=== PATIENT | male | born 1945 | race Caucasian/White ===

== ENCOUNTER 2017-07-02 12:40 | Inpatient (IN) | payer OTHER ==
[~2017-07-02] VITALS: Ht 172.7 cm; Wt 95.3 kg
--- NOTE | ~2017-07-02 | HC ---
[facility] [place] [address] CONSULTATION Name: AMARI LÓPEZ Room #: 204-P ADM IN M.R.#: [id number] Admission: 07/08/17 Attend Phys: Anthony Christianson MD Discharge: Date of : 43 Report #: [id number] THIS REPORT FOR: //name// CC: Raul Christianson DATE OF SERVICE: 07/09/2017 PRIMARY CARE PHYSICIAN: Raul Eller MD MOTION PICTURE EQUIPMENT SUPERVISOR: Rob Arellano MD CHIEF COMPLAINT: Status post CABG. HISTORY OF PRESENT ILLNESS: The patient is a 72-year-old patient, who has a known history of multivessel coronary artery disease as diagnosed by cardiac catheterization performed at [facility] last week. He presented with classical angina type symptoms, had multivessel coronary artery disease and underwent a successful 5-vessel CABG yesterday. This morning, he is hemodynamically stable. He has already been extubated. He is alert, oriented, sitting in a chair. He is in a sinus rhythm and systolic pressures, on Cardene, they are in the 130s range. He is without complaints of orthopnea or PND. He is taking some p.o., but has some limitations and that he has IVs in his right arm and his left arm is wrapped from his radial harvest on his left arm. He has no neurologic deficits of numbness or weakness though. He has no slurred speech or visual changes. PAST MEDICAL HISTORY: 1. Five-vessel CABG yesterday, MCCARTHY and LAD; sequentially to mid and distal LAD, saphenous vein graft to PDA and posterolateral branch and a separate radial artery graft to his obtuse marginal vessel. His LV function is grossly normal. He had very mild inferior hypokinesis. 2. Hypertension. 3. Hyperlipidemia. 4. He has a questionable history of remote TIA. 5. He also has been told he is a borderline diabetic. HOME MEDICATIONS: Include lisinopril 10 mg daily, Plavix 75 mg daily from his TIA, aspirin, metformin 500 mg p.o. b.i.d. and omeprazole. ALLERGIES: He has ALLERGIES TO HYDROCODONE. SOCIAL HISTORY: Nonsmoking. [facility] [address] [place] [address] CONSULTATION Name: AMARI LÓPEZ Room #: 204-P [facility] IN [facility]#: [id number] Admission: 07/08/17 Attend Phys: Anthony Christianson MD Discharge: Date of : 44 Report #: [id number] REVIEW OF SYSTEMS: GASTROINTESTINAL: No abdominal pain, nausea, vomiting. NEUROLOGIC: Denies slurred speech, numbness or weakness, no visual changes. ENDOCRINE: Positive diabetes. CARDIOVASCULAR: No chest pain, no orthopnea, no PND. SKIN: No edema. GENITOURINARY: No dysuria or hematuria. PULMONARY: No history of asthma, emphysema. EYES: Denies any blurred vision or loss of vision. PHYSICAL EXAMINATION: VITAL SIGNS: Blood pressure is 130s/70s in a sinus rhythm and his heart rates are in the 80s, O2 sat on nasal cannula on 2 liters greater than 95%. GENERAL: He is alert, oriented, no apparent distress. NECK: Supple. There is no jugular venous distention. There is a right IJ catheter with a clean and dry dressing. CARDIOVASCULAR: Regular. There is no murmur or S3. CHEST WALL: There is a midline incision with clean dressing with no bleeding. LUNGS: Clear to auscultation bilaterally. He has chest tubes with serosanguineous drainage. ABDOMEN: Nontender. EXTREMITIES: There is no peripheral edema. LABORATORY DATA: His ECG demonstrates a sinus rhythm, normal ST segments. His hemoglobin is 12.2; white blood cell count is 10.6; platelet count is 123,000. Sodium is 144, potassium is 4.5, chloride 111, CO2 is 26, BUN is 15, creatinine is 1.0. Chest x-ray today demonstrates a removal endotracheal tube and gastric tube with increasing atelectasis in the bases. Minimal left-sided pleural effusion. IMPRESSION: 1. Status post 5-vessel coronary artery bypass grafting. He presents with a preserved LV systolic function and severe multivessel coronary artery disease and numerous cardiovascular risk factors, but is hemodynamically stable postoperative day #1. We will continue routine postoperative care. 2. Hypertension. He did require Cardene, but once we restart his home medications, this should be stable. 3. Hyperlipidemia. We will resume therapy. 4. Diabetes mellitus per our hospital colleagues. We will continue with insulin protocol until he can take p.o. 5. History of transient ischemic attack. He presently has no neurologic [address] [address] CONSULTATION Name: AMARI LÓPEZ Room #: 204-P ADM IN [facility].#: [id number] Admission: 07/08/17 Attend Phys: Anthony P. Christianson, MD Discharge: Date of : 44 Report #: [id number] symptoms and his carotid Dopplers were unremarkable for the presence of severe obstructive disease preoperatively. <ELECTRONICALLY SIGNED> By: Rob Arellano MD, FACC 07/10/17 0858 0856 0928 Rob Arellano MD, FACC /nt
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
--- NOTE | ~2017-07-02 | 2DMMODE ---
[facility] [address] [place] [address] 2 D/M-MODE ECHOCARDIOGRAM Name: AMARI LÓPEZ Room #: PRE IN [facility]#: [id number] Admission: Attend Phys: Michael Mason, Discharge: Date of : 43 Date of Service: 07/03/17 1525 Report #: [id number] THIS REPORT FOR: //name// APPROVED REPORT Study performed: 07/03/2017 12:39:45 EXAM: Comprehensive 2D, Doppler, and color-flow Echocardiogram Patient Location: Out-Patient Room #: Echo lab Status: routine BSA: 2.07 HR: 55 bpm BP: 138/86 mmHg Other Information Study Quality: Fair Indications Pre-Op Diabetes CAD Hypertension/HDD Preop CABG 2D Dimensions RVDd: 34.29 mm LVEF(%): 55.64 (>50%) IVSd: 11.20 (7-11mm) LVOT Diam: 24.08 (18-24mm) LVDd: 50.07 mm PWd: 11.29 (7-11mm) Ascending Ao: 29.55 (22-36mm) LVDs: 35.50 (25-40mm) Aortic Root: 33.19 mm IVC: 17.00 mm Rivera's LVEF: 55.64 % Volumes Left Atrial Volume (Systole) Single Plane 4CH: 53.74 mL Single Plane 2CH: 44.79 mL LA ESV Index: 26.00 mL/m2 Aortic Valve AoV Peak Gideon.: 1.67 m/s AO Peak Gr.: 11.22 mmHg LVOT Max P.43 mmHg LVOT Max V: 0.93 m/s MOIRA Vmax: 2.52 cm2 [facility] [address] [place] [address] 2 D/M-MODE ECHOCARDIOGRAM Name: MARIBELAMARI DE LEON BARKER Room #: [facility] IN [facility]#: [id number] Admission: Attend Phys: Michael Mason, Discharge: Date of : 43 Date of Service: 07/03/17 1525 Report #: [id number] Mitral Valve E/A Ratio: 0.8 MV Decel. Time: 266.40 ms MV E Max Gideon.: 0.86 m/s MV A Gideon.: 1.11 m/s MV PHT: 77.26 ms IVRT: 133.79 ms Pulmonary Valve PV Peak Gideon.: 1.10 m/s PV Peak Gr.: 4.84 mmHg Pulmonary Vein P Vein S: 0.58 m/s P Vein A: 0.26 m/s P Vein D: 0.44 m/s P Vein A Dur.: 110.7 msec P Vein S/D Ratio: 1.32 Left Ventricle The left ventricle is normal size. basal inferior hypokinesis Mild to moderate concentric left ventricular hypertrophy. The left ventricular systolic function is normal. The left ventricular ejection fraction is within the normal range. LVEF is 55-60%. Findings suggest the left atrial pressure is elevated. Transmitral Doppler flow pattern suggests pseudonormalization. Right Ventricle The right ventricle is normal size. The right ventricular systolic function is normal. Atria The left atrium size is normal. The right atrium size is normal. Aortic Valve The aortic valve is normal in structure. Aortic valve is calcified. No aortic regurgitation is present. There is no aortic valvular stenosis. Mitral Valve The mitral valve is normal in structure. Mild mitral regurgitation. No evidence of mitral valve stenosis. Tricuspid Valve The tricuspid valve is normal in structure. There is no tricuspid valve regurgitation noted. [facility] [address] [place] [address] 2 D/M-MODE ECHOCARDIOGRAM Name: AMARI LÓPEZ Room #: PRE IN .R.#: [id number] Admission: Attend Phys: Michael Mason, Discharge: Date of : 43 Date of Service: 07/03/17 1525 Report #: [id number] Pulmonic Valve The pulmonary valve is normal in structure. There is no pulmonic valvular regurgitation. Great Vessels The aortic root is normal in size. IVC is normal in size and collapses >50% with inspiration. Pericardium There is no pericardial effusion. <Conclusion> LVEF is 55-60%. basal inferior hypokinesis There is no aortic valvular stenosis. No aortic regurgitation is present. Mild mitral regurgitation. Findings suggest the left atrial pressure is elevated. <ELECTRONICALLY SIGNED> By: Rob Arellano MD, FACC 07/03/17 1525 1525 1525 Rob Arellano MD, FACC /INF
--- NOTE | ~2017-07-02 | EKG ---
[address] [address] ELECTROCARDIOGRAM REPORT Name: AMARI LÓPEZ Room #: PRE IN [facility]#: [id number] Admission: Attend Phys: Michael Mason MD Discharge: Date of : 43 Report #: [id number] THIS REPORT FOR: //name// [facility] Test Date: 2017-07-04 Test Time: 09:06:28 Pat Name: AMARI LÓPEZ Department: Room: Gender: M Curing Finisher: cari mina : 1945 Requested By: Michael Mason Order Number: [id number] MD: Mark Nathan Measurements Intervals [place] Rate: 69 P: 74 NM: 174 QRS: 76 QRSD: 99 T: -6 QT: 377 QTc: 404 Interpretive Statements Sinus rhythm Borderline T abnormalities, diffuse leads No previous ECG available for comparison Electronically Signed On 07-04-2017 13:32:38 CLINICAL EDUCATION ASSISTANT by Mark Nathan [email or web address] <ELECTRONICALLY SIGNED> By: Mark Nathan MD 07/04/17 1332 0906 5 Mark Nathan MD /ARTEMIO
--- NOTE | ~2017-07-02 | EKG ---
[address] [address] ELECTROCARDIOGRAM REPORT Name: AMARI LÓPEZ BARKER Room #: 204-P ADM IN M.R.#: [id number] Admission: 07/08/17 Attend Phys: Anthony Christianson MD Discharge: Date of : 44 Report #: [id number] THIS REPORT FOR: //name// [facility] Test Date: 2017-07-10 Test Time: 08:57:17 Pat Name: AMARI LÓPEZ Department: Room: 204 P Gender: M Assembly Supervisor: pearl : 1945 Requested By: Rob Arellano Order Number: [id number] MD: Bob Adler Measurements Intervals [place] Rate: 84 P: 42 [place]: 163 QRS: -20 QRSD: 98 T: 6 QT: 354 QTc: 419 Interpretive Statements Sinus rhythm Borderline left axis deviation Abnormal R-wave progression, late transition Compared to ECG 07/09/2017 07:01:16 Atrial premature complex(es) no longer present Electronically Signed On 07-11-2017 9:05:22 MARKETING EDITOR by Bob Adler [email or web address] <ELECTRONICALLY SIGNED> By: Bob Adler MD, [facility] 07/11/17 0905 0857 0857 Bob Adler MD, [facility] /EPI
--- NOTE | ~2017-07-02 | EKG ---
[address] [address] ELECTROCARDIOGRAM REPORT Name: AMARI LÓPEZ BARKER Room #: 241-P [facility] IN M.R.#: [id number] Admission: 07/08/17 Attend Phys: Anthony Christianson MD Discharge: Date of : 44 Report #: [id number] THIS REPORT FOR: //name// [facility] Test Date: 2017-07-08 Test Time: 15:06:47 Pat Name: AMARI LÓPEZ Department: Room: 241 Gender: M Packaging Sales Representative: Marisabel MARTINEZ : 1945 Requested By: Savannah Conway Order Number: [id number] MD: Bob Adler Measurements Intervals [place] Rate: 69 P: 60 [place]: 206 QRS: -45 QRSD: 145 T: -1 QT: 446 QTc: 478 Interpretive Statements Sinus rhythm RBBB and LAFB Compared to ECG 07/04/2017 09:06:28 Left anterior fascicular block now present Right bundle-branch block now present Electronically Signed On 07-09-2017 9:26:08 CONSULTING SOFTWARE ENGINEER by Bob Adler [email or web address] <ELECTRONICALLY SIGNED> By: Bob Adler MD, [facility] 07/09/17 0926 1506 1506 Bob Adler MD, [facility] /EPI
--- NOTE | ~2017-07-02 | EKG ---
[address] [address] ELECTROCARDIOGRAM REPORT Name: MARIBELAMARI DE LEON MJ Room #: 204-P ADM IN .R.#: [id number] Admission: 07/08/17 Attend Phys: Anthony Christianson MD Discharge: Date of : 44 Report #: [id number] THIS REPORT FOR: //name// [facility] Test Date: 2017-07-09 Test Time: 07:01:16 Pat Name: AMARI LÓPEZ Department: Room: 204 Gender: M Pulp Screen Operator: ARIEL : 1945 Requested By: Savannah Conway Order Number: [id number] MD: Bob Adler Measurements Intervals [place] Rate: 77 P: 30 [place]: 138 QRS: -18 QRSD: 94 T: -1 QT: 372 QTc: 421 Interpretive Statements Sinus rhythm Atrial premature complex Abnormal R-wave progression, late transition Compared to ECG 07/04/2017 09:06:28 Atrial premature complex(es) now present Right bundle-branch block no longer present Electronically Signed On 07-10-2017 7:39:34 HANDSTITCHING MACHINE ARMHOLE FELLER by Bob Adler [email or web address] <ELECTRONICALLY SIGNED> By: Bob Adler MD, [facility] 07/10/17 0739 07 Bob Adler MD, [facility] /EPI
--- NOTE | ~2017-07-02 | O ---
[facility] [place] [address] OPERATIVE REPORT Name: AMARI LÓPEZ Room #: 217-P ADM IN M.R.#: [id number] Admission: 07/08/17 Attend Phys: Anthony Christianson MD Discharge: Date of : 44 Report #: [id number] THIS REPORT FOR: //name// CC: Raul Arellano MD [facility] DATE OF SERVICE: 07/08/2017 PREOPERATIVE DIAGNOSES: 1. Coronary artery disease. 2. Exertional dyspnea. 3. Normal left ventricular systolic function. FINAL DIAGNOSES: 1. Coronary artery disease. 2. Exertional dyspnea. 3. Normal left ventricular systolic function. OPERATIVE PROCEDURE PERFORMED: 1. Coronary artery bypass grafting x 5 with left internal mammary artery sequence to mid LAD and then to the distal LAD, saphenous vein graft sequence to PDA and then the posterolateral branch and radial artery graft to obtuse marginal vessel. 2. Left radial artery harvest. SURGEON: Michael Mason MD. CONCRETE BUILDING ASSEMBLER: LETICIA Fitzgerald. ANESTHESIA: General. OPERATIVE INDICATIONS: The patient is a 72-year-old male with known history of hypertension, hyperlipidemia. He has presented with symptoms of exertional dyspnea. On further evaluation, found to have evidence of severe multivessel coronary artery disease with normal LV systolic function. He is admitted to the hospital at this time and brought to the operating room for coronary bypass grafting. DESCRIPTION OF PROCEDURE: The patient was brought to the operating room and placed on the OR table in supine position. After anesthesia was induced via the general endotracheal route, monitoring lines have been positioned, and the patient was prepped and draped in sterile fashion with chlorhexidine. I first harvested radial artery from the left forearm using a Harmonic scalpel. Concomitantly, saphenous vein was harvested from left lower extremity using endoscopic techniques. I then performed a median sternotomy incision, the left [facility] [address] [place] [address] OPERATIVE REPORT Name: AMARI LÓPEZ Room #: 217-P [facility] IN [facility]#: [id number] Admission: 07/08/17 Attend Phys: Anthony Christianson MD Discharge: Date of : 44 Report #: [id number] internal mammary artery was harvested in standard fashion. We opened the pericardium, systemically anticoagulated the patient with heparin. Cannulae were placed in ascending aorta and the right atrium. Antegrade cardioplegic cannula was positioned, and cardiopulmonary bypass was begun. A retrograde cardioplegia was then positioned and then under low flow conditions, the aorta was cross clamped, the heart was arrested with 1 liter of cold antegrade cardioplegia, followed by 500 mL cold retrograde cardioplegia. This was augmented with topical ice slush. Diastolic arrest was achieved and maintained throughout this operation with intermittent doses of cold retrograde and antegrade cardioplegia as well as cardioplegia given down grafts and topical ice slush. We first opened up the obtuse marginal vessel. It is a moderately sized vessel and constructed the distal anastomosis in end-to-side fashion with 7-0 Prolene utilizing a radial artery. Radial artery was brought around to the ascending aorta, and a proximal was constructed with 7-0 Prolene after a 4.8 punch aortotomy was created. Next, we approached the right coronary system. We found the vessels to be small. We first opened up the posterolateral branch, it is about a 1.3 mm vessel, and anastomosis was carried out in end-to-side fashion with 7-0 Prolene. We then constructed this anastomosis to the PDA with the same segment of vein. This was performed in a [id number] anastomosis with 7-0 Prolene. This vein graft was brought around to the ascending aorta and anastomosed to the ascending aorta with 6-0 Prolene after 4.8 punch aortotomy was created. Next, we approached the LAD. We first made an arteriotomy in the mid LAD; however, we were unable to pass the probe distally. I then opened up the vessel again more distal to this obstruction, performed a distal anastomosis in an end-to-side fashion to the distal aspect. I then performed an anastomosis in a [id number]-[id number]-[id number] fashion with the internal mammary artery as well. These were both performed with 7-0 Prolene. The pedicle was tacked to the epicardium with 6-0 Prolene. The heart was placed back in its anatomic position. Warm cardioplegia was given both retrograde and antegrade. Care was taken to deair the ascending aorta and the vein graft. Under low flow conditions, the aorta crossclamp was released to begin the period of reperfusion. The patient was rewarmed to 37 degree centigrade. Atrial and ventricular pacing wires were placed. The patient was defibrillated and normal sinus rhythm returned. Three successive doses of calcium and a single dose of magnesium were given over 3-5 minute intervals. After a suitable period of reperfusion, the lungs were reinflated. The patient was weaned from cardiopulmonary bypass without inotropic support. Protamine was given to reverse the heparin, decannulation was effected. Once satisfactory hemostasis was achieved, placed two 32-Arabic chest tubes in anterior mediastinum and 24 Neo drain in left pleural space. They were all brought out through separate stab incisions. The sternum was closed with #7 wire. The fascia, subcutaneous and skin were closed in [address] [address] OPERATIVE REPORT Name: AMARI LÓPEZ Room #: 217-P [facility] IN ..#: [id number] Admission: 07/08/17 Attend Phys: Anthony Christianson MD Discharge: Date of : 43 Report #: [id number] layers with absorbable suture. The procedure was completed. The patient was taken to the Intensive Care Unit in stable condition. By: [id number] [id number] /nt
[~2017-07-02 12:40] MED LIST: ACETAMINOPHEN325 M1 PO; EASY-LAX100 MG PO; EXCEDRIN CAPLE1 EACH; EXCEDRIN CAPLE1 EACH PO; FIBER CHOICE1 EACH PO; FIBER500 MG PO; FIBERCON625 M1 PO; FISHOIL; FLAGYL500 MG PO; GLUCOPHAGE500 MG PO; HYDROCODON-ACE1 EAC1 PO; HYDROCODON-ACE1 EAC7 PO; HYDROCODON-ACE1 EACH PO; LEVAQUIN 500 M500 M2 PO; LIPITOR40 MG PO; LISINOPRIL10 MG PO; MINIPRIN81 MG; NIACIN 500 MG500 M1 PO; PLAVIX 75 MG TA75 M1 PO; PRILOSEC 20 MG20 MG PO; PROAIR RESPICL90 MCG IH; PROTONIX40 M1 PO; TAMSULOSIN HCL0.4 MG PO; TOPROL XL25 MG PO; VITAMIN D-32000 UNIT; ZOFRAN ODT4 MG PO
[2017-07-02] MEDS ORDERED: METFORMIN HCL500 MG PO (15:20)
[2017-07-02] MEDS ORDERED: OMEPRAZOLE40 MG PO (15:22)
[2017-07-04 09:07] LABS: URINE BILIRUBIN NEGATIVE (Negative); URINE BLOOD TRACE (Negative); URINE COLOR YELLOW; URINE GLUCOSE-RANDOM* NEGATIVE (Negative); URINE KETONES NEGATIVE (Negative); URINE LEUKOCYTES-REFLEX NEGATIVE (Negative); URINE PROTEIN (DIPSTICK) NEGATIVE (Negative); URINE SPECIFIC GRAVITY 1.025 (1.005-1.035); URINE UROBILINOGEN 0.2 E.U./dl (0.2-1.0)
[2017-07-04 09:08] LABS: HEMATOCRIT 44.3 % (42.0-52.0); HEMOGLOBIN 15.1 gm/dL (14.0-18.0); MCH 29.6 pg (26.0-34.0); MCHC 34.1 g/dL (28.0-37.0); MCV 87.1 fL (80.0-100.0); PLATELET COUNT 163 thou/uL (150-400); RBC 5.09 mil/uL (4.50-6.00); RDW 14.5 % (10.5-14.5); WBC 5.7 thou/uL (4.0-11.0)
[2017-07-04 09:15] LABS: MANUAL DIFF YES
[2017-07-04 09:24] LABS: APTT 25.2 Seconds (24.5-32.8); PROTIME 9.8 Seconds (9.3-11.4)
[2017-07-04 09:25] LABS: ALBUMIN 3.7 g/dL (3.4-5.0); CALCIUM 9.2 mg/dL (8.5-10.1); CREATININE 0.8 mg/dL (0.7-1.3); TOTAL BILIRUBIN 0.5 mg/dL (<0.1-1.0); TOTAL PROTEIN 6.7 g/dL (6.4-8.2)
[2017-07-04 09:36] LABS: ABSOLUTE NEUTROPHILS 2.6 thou/uL (1.4-8.2); METAMYELOCYTES 1 %; TOTAL CELL COUNT 100
[2017-07-04 09:37] LABS: ANISOCYTOSIS SLIGHT
[2017-07-05 02:08] LABS: GLYCOHEMOGLOBIN (HGB A1C) 6.2 % (4.8-5.6)
[2017-07-08 08:12] VITALS: BP 153/93
[2017-07-08 13:02] LABS: HEMATOCRIT 30.9 % (42.0-52.0); HEMOGLOBIN 10.4 gm/dL (14.0-18.0); MCH 29.5 pg (26.0-34.0); MCHC 33.7 g/dL (28.0-37.0); MCV 87.5 fL (80.0-100.0); RBC 3.53 mil/uL (4.50-6.00); RDW 14.1 % (10.5-14.5); WBC 10.1 thou/uL (4.0-11.0)
[2017-07-08 13:17] LABS: APTT 22.4 Seconds (24.5-32.8); FIBRINOGEN 269.2 mg/dL (210-360); INR 1.3; PROTIME 12.9 Seconds (9.3-11.4)
[2017-07-08 13:57] LABS: POC BE -2 mmol/L (-2.0 to +3.0); POC CA IONIZED 4.2 mg/dL (4.5-5.3); POC FiO2 100 %; POC GLUCOSE 167 mg/dL (70-99); POC HCO3 23.7 mmol/L (22.0-26.0); POC HEMOGLOBIN 9.9 g/dL (14.0-18.0); POC POTASSIUM 4.7 mmol/L (3.5-5.1); POC SODIUM 139 mmol/L (136-145); POC pCO2 43.9 mmHg (35.0-45.0)
[2017-07-08 13:57] LABS: POC BE -6 mmol/L (-2.0 to +3.0); POC CA IONIZED 3.8 mg/dL (4.5-5.3); POC FiO2 100 %; POC GLUCOSE 164 mg/dL (70-99); POC HCO3 20.6 mmol/L (22.0-26.0); POC HEMOGLOBIN 11.2 g/dL (14.0-18.0); POC POTASSIUM 4.5 mmol/L (3.5-5.1); POC SODIUM 143 mmol/L (136-145); POC pCO2 42.2 mmHg (35.0-45.0); POC pH 7.296 (7.360-7.450)
[2017-07-08 13:57] LABS: POC BE 0 mmol/L (-2.0 to +3.0); POC FiO2 100 %; POC GLUCOSE 175 mg/dL (70-99); POC HCO3 25.2 mmol/L (22.0-26.0); POC HEMOGLOBIN 10.2 g/dL (14.0-18.0); POC POTASSIUM 4.4 mmol/L (3.5-5.1); POC SODIUM 136 mmol/L (136-145); POC pCO2 43.3 mmHg (35.0-45.0); POC pH 7.373 (7.360-7.450)
[2017-07-08 13:57] LABS: POC BE 1 mmol/L (-2.0 to +3.0); POC CA IONIZED 4.2 mg/dL (4.5-5.3); POC FiO2 80 %; POC GLUCOSE 172 mg/dL (70-99); POC HCO3 25.9 mmol/L (22.0-26.0); POC HEMOGLOBIN 10.5 g/dL (14.0-18.0); POC POTASSIUM 4.6 mmol/L (3.5-5.1); POC SODIUM 140 mmol/L (136-145); POC pCO2 44.1 mmHg (35.0-45.0); POC pH 7.378 (7.360-7.450)
[2017-07-08 13:57] LABS: POC BE -1 mmol/L (-2.0 to +3.0); POC CA IONIZED 7.6 mg/dL (4.5-5.3); POC FiO2 100 %; POC GLUCOSE 148 mg/dL (70-99); POC HCO3 24.7 mmol/L (22.0-26.0); POC HEMOGLOBIN 9.9 g/dL (14.0-18.0); POC POTASSIUM 4.1 mmol/L (3.5-5.1); POC SODIUM 141 mmol/L (136-145); POC pCO2 43.2 mmHg (35.0-45.0); POC pH 7.366 (7.360-7.450)
[2017-07-08 13:57] LABS: POC BE 0 mmol/L (-2.0 to +3.0); POC CA IONIZED 4.4 mg/dL (4.5-5.3); POC FiO2 100 %; POC GLUCOSE 168 mg/dL (70-99); POC HCO3 26.3 mmol/L (22.0-26.0); POC HEMOGLOBIN 10.2 g/dL (14.0-18.0); POC POTASSIUM 4.3 mmol/L (3.5-5.1); POC SODIUM 141 mmol/L (136-145); POC pCO2 50.4 mmHg (35.0-45.0); POC pH 7.326 (7.360-7.450)
[2017-07-08 13:57] LABS: POC BE 0 mmol/L (-2.0 to +3.0); POC CA IONIZED 4.2 mg/dL (4.5-5.3); POC FiO2 75 %; POC GLUCOSE 171 mg/dL (70-99); POC HCO3 25.1 mmol/L (22.0-26.0); POC HEMOGLOBIN 10.5 g/dL (14.0-18.0); POC POTASSIUM 4.5 mmol/L (3.5-5.1); POC SODIUM 140 mmol/L (136-145); POC pCO2 40.4 mmHg (35.0-45.0); POC pH 7.401 (7.360-7.450)
[2017-07-08 13:57] LABS: POC BE 6 mmol/L (-2.0 to +3.0); POC CA IONIZED 4.7 mg/dL (4.5-5.3); POC FiO2 100 %; POC GLUCOSE 142 mg/dL (70-99); POC HCO3 30.4 mmol/L (22.0-26.0); POC HEMOGLOBIN 14.3 g/dL (14.0-18.0); POC POTASSIUM 4.8 mmol/L (3.5-5.1); POC SODIUM 141 mmol/L (136-145); POC pCO2 47.6 mmHg (35.0-45.0); POC pH 7.412 (7.360-7.450)
[2017-07-08 13:57] LABS: POC BE 3 mmol/L (-2.0 to +3.0); POC CA IONIZED 4.5 mg/dL (4.5-5.3); POC FiO2 100 %; POC GLUCOSE 177 mg/dL (70-99); POC HCO3 27.5 mmol/L (22.0-26.0); POC HEMOGLOBIN 12.9 g/dL (14.0-18.0); POC POTASSIUM 4.3 mmol/L (3.5-5.1); POC SODIUM 140 mmol/L (136-145); POC pCO2 42.4 mmHg (35.0-45.0); POC pH 7.419 (7.360-7.450)
[2017-07-08 13:58] LABS: POC BE -3 mmol/L (-2.0 to +3.0); POC CA IONIZED 6.2 mg/dL (4.5-5.3); POC FiO2 100 %; POC GLUCOSE 130 mg/dL (70-99); POC HCO3 22.2 mmol/L (22.0-26.0); POC HEMOGLOBIN 11.2 g/dL (14.0-18.0); POC SODIUM 142 mmol/L (136-145); POC pCO2 38.3 mmHg (35.0-45.0); POC pH 7.371 (7.360-7.450)
[2017-07-08 14:27] LABS: ABG SAMPLE TYPE ARTERIAL; BE(vivo) -5.9 mmol/L (-2 to +3); LACTATE 2.33 mmol/L (0.5-2.0); O2(CT) 16.7 mL/dL (15.0-23.0); O2Hb 97.1 % (92.0-98.0); PCO2 40.6 mmHg (35.0-45.0); PO2 162.8 mmHg (80.0-100.0); STICK SITE LINE; TIDAL VOLUME 700 ml; sO2 98.9 % (92.0-98.0); tCO2 21.2 mmol/L (24.0-30.0)
[2017-07-08 14:42] LABS: HEMATOCRIT 35.9 % (42.0-52.0); MCH 29.5 pg (26.0-34.0); MCHC 33.5 g/dL (28.0-37.0); MCV 88.2 fL (80.0-100.0); RBC 4.07 mil/uL (4.50-6.00); RDW 14.3 % (10.5-14.5); WBC 10.9 thou/uL (4.0-11.0)
[2017-07-08 14:53] LABS: CALCIUM 10.7 mg/dL (8.5-10.1); CREATININE 1.1 mg/dL (0.7-1.3); POTASSIUM 4.1 mmol/L (3.5-5.1)
[2017-07-08 14:54] LABS: MAGNESIUM 2.9 mg/dL (1.8-2.4)
[2017-07-08 14:56] LABS: INR 1.1
[2017-07-08 19:19] VITALS: BP 104/62
[2017-07-08 20:11] LABS: ABG SAMPLE TYPE ARTERIAL; BE(vivo) -1.4 mmol/L (-2 to +3); HCO3 23.6 mmol/L (22.0-26.0); LACTATE 2.36 mmol/L (0.5-2.0); O2(CT) 17.6 mL/dL (15.0-23.0); O2Hb 97.4 % (92.0-98.0); PCO2 40.7 mmHg (35.0-45.0); PO2 130.5 mmHg (80.0-100.0); Pressure Support 6 cm H20; STICK SITE LINE; TIDAL VOLUME 450 ml; pH 7.381 (7.360-7.450); sO2 98.6 % (92.0-98.0); tCO2 24.8 mmol/L (24.0-30.0)
[2017-07-08 20:12] LABS: ABG COMMENT CPAP/PS TRIAL X30MIN
[2017-07-09] VITALS (8 sets, daily range): BP systolic 94–151; BP diastolic 60–87
[2017-07-09 04:37] LABS: HEMATOCRIT 35.5 % (42.0-52.0); HEMOGLOBIN 12.2 gm/dL (14.0-18.0); MCHC 34.2 g/dL (28.0-37.0); MCV 87.7 fL (80.0-100.0); RBC 4.05 mil/uL (4.50-6.00); RDW 14.4 % (10.5-14.5); WBC 10.6 thou/uL (4.0-11.0)
[2017-07-09 04:38] LABS: ABG SAMPLE TYPE ARTERIAL; BE(vivo) 0.2 mmol/L (-2 to +3); HCO3 25.9 mmol/L (22.0-26.0); O2Hb 95.4 % (92.0-98.0); PCO2 46.1 mmHg (35.0-45.0); PO2 87.3 mmHg (80.0-100.0); STICK SITE LINE; pH 7.367 (7.360-7.450); sO2 96.3 % (92.0-98.0); tCO2 27.3 mmol/L (24.0-30.0)
[2017-07-09 04:47] LABS: MAGNESIUM 2.1 mg/dL (1.8-2.4); POTASSIUM 4.5 mmol/L (3.5-5.1)
[2017-07-09 04:52] LABS: CALCIUM 8.5 mg/dL (8.5-10.1)
[2017-07-09 04:58] LABS: INR 1.1; PROTIME 10.9 Seconds (9.3-11.4)
[2017-07-10 03:30] VITALS: BP 134/87
[2017-07-10 04:46] LABS: CREATININE 0.9 mg/dL (0.7-1.3); MAGNESIUM 2.1 mg/dL (1.8-2.4); POTASSIUM 4.5 mmol/L (3.5-5.1)
[2017-07-10 06:57] LABS: HEMOGLOBIN 11.1 gm/dL (14.0-18.0); MCH 29.6 pg (26.0-34.0); MCHC 33.4 g/dL (28.0-37.0); MCV 88.7 fL (80.0-100.0); RBC 3.73 mil/uL (4.50-6.00); RDW 14.7 % (10.5-14.5); WBC 11.5 thou/uL (4.0-11.0)
[2017-07-10 07:30] VITALS: BP 115/75
[2017-07-10 11:40] VITALS: BP 98/57
[2017-07-10 15:25] VITALS: BP 118/61
[2017-07-10 17:21] LABS: URINE BILIRUBIN NEGATIVE (Negative); URINE BLOOD 3+ (Negative); URINE COLOR YELLOW; URINE GLUCOSE-RANDOM* NEGATIVE (Negative); URINE KETONES 1+ (Negative); URINE NITRITE NEGATIVE (Negative); URINE PROTEIN (DIPSTICK) 1+ (Negative); URINE SPECIFIC GRAVITY 1.025 (1.005-1.035); URINE UROBILINOGEN 0.2 E.U./dl (0.2-1.0)
[2017-07-10 17:30] LABS: CASTS None Seen /LPF (None Seen); CRYSTALS None Seen /LPF (None Seen); SQUAMOUS None Seen /LPF (0-3); URINE RBC 3-10 Few /HPF (0-2); URINE WBC 0-5 Rare /HPF (0-5)
[2017-07-10 17:31] LABS: BACTERIA 1-9 Few /HPF (None Seen)
[2017-07-10 17:33] LABS: FOLIC ACID 10.8 ng/mL (8.6-58.9)
[2017-07-10 19:38] VITALS: BP 136/80
[2017-07-11 03:05] VITALS: BP 121/72
[2017-07-11 04:11] LABS: CREATININE 0.9 mg/dL (0.7-1.3); MAGNESIUM 2.2 mg/dL (1.8-2.4); POTASSIUM 3.9 mmol/L (3.5-5.1)
[2017-07-11 07:20] VITALS: BP 114/40
[2017-07-11 11:20] VITALS: BP 111/69
[2017-07-11 15:27] VITALS: BP 110/60
[2017-07-11 19:21] VITALS: BP 120/74
[2017-07-12 03:09] VITALS: BP 118/77
[2017-07-12 04:31] LABS: HEMATOCRIT 34.4 % (42.0-52.0); HEMOGLOBIN 11.5 gm/dL (14.0-18.0); MCH 29.7 pg (26.0-34.0); MCHC 33.5 g/dL (28.0-37.0); MCV 88.6 fL (80.0-100.0); RBC 3.88 mil/uL (4.50-6.00); RDW 14.5 % (10.5-14.5); WBC 8.8 thou/uL (4.0-11.0)
[2017-07-12 04:32] LABS: CALCIUM 8.7 mg/dL (8.5-10.1); CREATININE 0.9 mg/dL (0.7-1.3); POTASSIUM 3.7 mmol/L (3.5-5.1)
[2017-07-12 07:16] VITALS: BP 120/78
[2017-07-12 11:37] VITALS: BP 110/70
[2017-07-12 15:12] VITALS: BP 112/60
[2017-07-12 19:37] VITALS: BP 112/74
[2017-07-12 23:23] VITALS: BP 112/74
[2017-07-13 03:46] LABS: HEMATOCRIT 35.6 % (42.0-52.0); MCH 29.7 pg (26.0-34.0); MCHC 33.8 g/dL (28.0-37.0); MCV 88.1 fL (80.0-100.0); RBC 4.04 mil/uL (4.50-6.00); RDW 14.2 % (10.5-14.5); WBC 9.8 thou/uL (4.0-11.0)
[2017-07-13 04:01] LABS: CALCIUM 8.7 mg/dL (8.5-10.1); CREATININE 0.9 mg/dL (0.7-1.3); PHOSPHORUS 2.8 mg/dL (2.5-4.9); POTASSIUM 3.4 mmol/L (3.5-5.1)
[2017-07-13 05:32] VITALS: BP 134/75
[2017-07-13 07:33] VITALS: BP 137/77
[2017-07-13 08:00] VITALS: BP 135/77
[2017-07-13 11:30] VITALS: BP 111/74
[2017-07-13 16:00] VITALS: BP 101/82; BP 175/95
[2017-07-13 19:18] VITALS: BP 122/78
[2017-07-14 02:52] LABS: HEMOGLOBIN 11.8 gm/dL (14.0-18.0); MCH 29.5 pg (26.0-34.0); MCHC 33.8 g/dL (28.0-37.0); MCV 87.4 fL (80.0-100.0); RBC 4.01 mil/uL (4.50-6.00); RDW 13.9 % (10.5-14.5); WBC 11.1 thou/uL (4.0-11.0)
[2017-07-14 03:04] LABS: CALCIUM 8.8 mg/dL (8.5-10.1)
[2017-07-14 03:05] LABS: POTASSIUM 3.6 mmol/L (3.5-5.1)
[2017-07-14 03:50] VITALS: BP 120/77
[2017-07-14 07:01] VITALS: BP 134/87
[2017-07-14 12:25] VITALS: BP 110/75
[2017-07-14 17:00] VITALS: BP 132/80
[2017-07-14 19:03] VITALS: BP 124/84
[2017-07-15] VITALS (7 sets, daily range): BP systolic 104–135; BP diastolic 19–92
[2017-07-15 03:36] LABS: CALCIUM 8.7 mg/dL (8.5-10.1); CREATININE 0.9 mg/dL (0.7-1.3); POTASSIUM 3.4 mmol/L (3.5-5.1)
[2017-07-15 03:37] LABS: HEMATOCRIT 34.6 % (42.0-52.0); HEMOGLOBIN 11.5 gm/dL (14.0-18.0); MCH 29.2 pg (26.0-34.0); MCHC 33.2 g/dL (28.0-37.0); MCV 87.8 fL (80.0-100.0); RBC 3.94 mil/uL (4.50-6.00); RDW 14.4 % (10.5-14.5); WBC 11.4 thou/uL (4.0-11.0)
[2017-07-16 02:41] LABS: HEMATOCRIT 33.9 % (42.0-52.0); HEMOGLOBIN 11.5 gm/dL (14.0-18.0); MCH 29.8 pg (26.0-34.0); MCHC 33.9 g/dL (28.0-37.0); MCV 87.9 fL (80.0-100.0); RBC 3.86 mil/uL (4.50-6.00); RDW 14.1 % (10.5-14.5); WBC 10.1 thou/uL (4.0-11.0)
[2017-07-16 02:46] LABS: MAGNESIUM 2.1 mg/dL (1.8-2.4); POTASSIUM 3.6 mmol/L (3.5-5.1)
[2017-07-16 04:18] VITALS: BP 124/83
[2017-07-16 08:15] VITALS: BP 136/71
[2017-07-16 09:58] VITALS: BP 136/71
[2017-07-16 11:00] VITALS: BP 112/57
[2017-07-16] MEDS ORDERED: ADULT LOW DOSE81 MG PO (12:00)
[2017-07-16] MEDS ORDERED: LOPRESSOR25 PO (12:00)
[2017-07-16 12:05] VITALS: BP 120/77
[2017-07-16] MEDS ORDERED: LIPITOR 20 MG T20 M1 PO (12:05)
== END 2017-07-16 16:45 | disposition home health service (06) | DRG 235 ==
LOC: PRE → ICU 07-08 05:17 → TBA 07-08 05:17 → PRE 07-08 05:22 → ICU 07-08 14:10 → PRE 07-08 14:40 → ICU 07-08 14:43 → 2N 07-09 18:12
PROVIDERS: Hospitalist; Internal Medicine; Internal Medicine Cardiovascular Disease; Nurse Practitioner; Nurse Practitioner Family; Thoracic Surgery (Cardiothoracic Vascular Surgery)
PROC: 021309W Bypass Coronary Artery, Four or More Arteries from Aorta with Autologous Venous Tissue, Open Approach (ICD-10-PCS; principal; 2017-07-08)
PROC: 5A1221Z Performance of Cardiac Output, Continuous (ICD-10-PCS; principal; 2017-07-08)
PROC: 02100Z9 Bypass Coronary Artery, One Artery from Left Internal Mammary, Open Approach (ICD-10-PCS; principal; 2017-07-08)
PROC: 03BC4ZZ Excision of Left Radial Artery, Percutaneous Endoscopic Approach (ICD-10-PCS; principal; 2017-07-08)
PROC: 06BQ4ZZ Excision of Left Saphenous Vein, Percutaneous Endoscopic Approach (ICD-10-PCS; principal; 2017-07-08)
PROC: 4A133B1 Monitoring of Arterial Pressure, Peripheral, Percutaneous Approach (ICD-10-PCS; 2017-07-08)
PROC: 4A133J1 Monitoring of Arterial Pulse, Peripheral, Percutaneous Approach (ICD-10-PCS; 2017-07-08)
PROC: 03HY32Z Insertion of Monitoring Device into Upper Artery, Percutaneous Approach (ICD-10-PCS; 2017-07-08)
PROC: B543ZZA Ultrasonography of Right Jugular Veins, Guidance (ICD-10-PCS; 2017-07-08)
PROC: 05HM33Z Insertion of Infusion Device into Right Internal Jugular Vein, Percutaneous Approach (ICD-10-PCS; 2017-07-08)
DX: I25.10 Atherosclerotic heart disease of native coronary artery without angina pectoris (principal); I50.31 Acute diastolic (congestive) heart failure; G93.40 Encephalopathy, unspecified; I69.354 Hemiplegia and hemiparesis following cerebral infarction affecting left non-dominant side; F10.231 Alcohol dependence with withdrawal delirium; I11.0 Hypertensive heart disease with heart failure; K21.9 Gastro-esophageal reflux disease without esophagitis; E78.5 Hyperlipidemia, unspecified; E86.0 Dehydration; G47.00 Insomnia, unspecified; E11.9 Type 2 diabetes mellitus without complications; T50.905A Adverse effect of unspecified drugs, medicaments and biological substances, initial encounter; Z88.6 Allergy status to analgesic agent; Z87.891 Personal history of nicotine dependence; Z87.828 Personal history of other (healed) physical injury and trauma; Z79.4 Long term (current) use of insulin; Y92.89 Other specified places as the place of occurrence of the external cause
CPT/HCPCS: 10078; 10797; 47000; 47001; 47002; 47297; 48888; 50010; 50249; 50318; 50409; 50456; 50497; 50662; 50668; 51301; 52131; 52190; 52314; 53327; 53358; 54118; 56524; 56525; 56526; 56527; 56528; 56529; 56531; 56534; 57093; 62110; 62950; 64029; 65002; 65003; 65020; 65043; 65120

== ENCOUNTER → 2017-08-06 | Outpatient (CLI) | payer OTHER ==
[~2017-08-06] MED LIST changes: +ADULT LOW DOSE81 MG PO; +LIPITOR 20 MG T20 M1 PO; +LOPRESSOR25 PO; +METFORMIN HCL500 MG PO; +OMEPRAZOLE40 MG PO
== END ==
LOC: RAD 10:39
DX: R05 Cough (principal); Z95.1 Presence of aortocoronary bypass graft